=== PATIENT | female | born 1965 | race Caucasian/White ===

== ENCOUNTER → 2017-10-30 10:08 | Outpatient (CLI) | payer BC, SELFPAY ==
[2017-10-30 12:44] LABS: Absolute Lymphocyte Count 2.67 X10^3/ul (0.83-4.51); Absolute Neutrophil Count 1.6 X10^3/uL (2.0-7.7); Basophil# 0.14 X10^3/uL; Basophil% 2.7 % (0-1); Eosinophil# 0.34 X10^3/uL; Eosinophils% 6.4 % (0-5); Lymphocyte # 2.67 X10^3/ul (4.0); Lymphocyte % 50.6 % (19-41); Mean Corp Hgb Conc 31.7 g/gl (32-36); Mean Corpuscular Hgb 29.4 pg (27.0-32.0); Mean Corpuscular Volume 92.8 fL (81-99); Mean Platelet Vol. 10.9 fl (6.2-12.0); Monocyte# 0.55 X10^3/uL; Monocyte% 10.4 % (0-10); Neutrophil # 1.58 X10^3/uL (2.7-7.7); Neutrophil % 29.9 % (47-70); Platelet Count 263 K/mm3 (150-450); RBC Distribution Width CV 13.1 % (11.6-14.6); RBC Distribution Width SD 44.3 fl (35.1-43.9); Red Blood Count 4.42 M/mm3 (4.2-5.4); White Blood Count 5.3 K/mm3 (4.4-11.0)
[2017-10-30 12:45] LABS: POSITIVE COUNT NO; POSITIVE DIFFERENTIAL NO; POSITIVE MORPHOLOGY NO
[2017-10-30 13:02] LABS: ALB/GLOB Ratio 1.1 RATIO (0.9-2.4); AST(SGOT) 26 U/L (15-37); Alanine Aminotransfer ALT/SGPT 45 U/L (13-56); Albumin, Serum 3.7 g/dL (3.2-5.0); Alkaline Phosphatase 96 U/L (45-117); Anion Gap 9 (5-15); BUN 13 mg/dL (7-18); BUN/Creat Ratio 17.3 RATIO (10-20); Calcium,Total 8.8 mg/dL (8.5-10.1); Chloride 105 mmol/L (98-107); Creatinine, Serum 0.75 mg/dL (0.55-1.02); EST Glomerular Filtration Rate 86 mL/min (>60); Est Glom Filt Rate - Afr Amer 104 mL/min (>60); Globulin 3.5 g/dL (2.2-4.2); Glucose 82 mg/dL (74-106); Potassium 3.8 mmol/L (3.5-5.1); Protein, Total 7.2 g/dL (6.4-8.2); Sodium Level 140 mmol/L (136-145)
== END ==
PROVIDERS: Family Provider Family Medicine; PCP Family Medicine; Visit Provider Internal Medicine Rheumatology
DX: M06.09 Rheumatoid arthritis without rheumatoid factor, multiple sites (principal); M79.7 Fibromyalgia; M51.36 Other intervertebral disc degeneration, lumbar region; G43.109 Migraine with aura, not intractable, without status migrainosus; N20.0 Calculus of kidney; Z79.899 Other long term (current) drug therapy
CPT/HCPCS: 36415; 80053; 85025

== ENCOUNTER → 2018-01-20 11:17 | Outpatient (CLI) | payer BC, SELFPAY ==
[2018-01-20 12:16] LABS: Absolute Neutrophil Count 1.5 X10^3/uL (2.0-7.7); Basophil# 0.06 X10^3/uL; Basophil% 1.4 % (0-1); Eosinophil# 0.26 X10^3/uL; Eosinophils% 6.3 % (0-5); Hematocrit 38.9 % (37-47); Hemoglobin 12.3 g/dl (12.0-15.0); Lymphocyte % 48.1 % (19-41); Mean Corp Hgb Conc 31.6 g/gl (32-36); Mean Corpuscular Hgb 29.3 pg (27.0-32.0); Mean Corpuscular Volume 92.6 fL (81-99); Mean Platelet Vol. 10.8 fl (6.2-12.0); Monocyte# 0.34 X10^3/uL; Monocyte% 8.2 % (0-10); Platelet Count 242 K/mm3 (150-450); RBC Distribution Width CV 12.4 % (11.6-14.6); White Blood Count 4.2 K/mm3 (4.4-11.0)
[2018-01-20 12:28] LABS: POSITIVE COUNT NO; POSITIVE DIFFERENTIAL NO; POSITIVE MORPHOLOGY NO
[2018-01-20 12:34] LABS: ALB/GLOB Ratio 1.1 RATIO (0.9-2.4); AST(SGOT) 31 U/L (15-37); Alanine Aminotransfer ALT/SGPT 47 U/L (13-56); Albumin, Serum 3.7 g/dL (3.2-5.0); Alkaline Phosphatase 114 U/L (45-117); Anion Gap 4 (5-15); BUN 12 mg/dL (7-18); BUN/Creat Ratio 13.1 RATIO (10-20); Calcium,Total 8.8 mg/dL (8.5-10.1); Chloride 107 mmol/L (98-107); Creatinine, Serum 0.91 mg/dL (0.55-1.02); EST Glomerular Filtration Rate 68 mL/min (>60); Est Glom Filt Rate - Afr Amer 83 mL/min (>60); Globulin 3.5 g/dL (2.2-4.2); Glucose 73 mg/dL (74-106); Potassium 3.9 mmol/L (3.5-5.1); Protein, Total 7.2 g/dL (6.4-8.2); Sodium Level 142 mmol/L (136-145)
== END ==
PROVIDERS: Family Provider Family Medicine; PCP Family Medicine; Visit Provider Internal Medicine Rheumatology
DX: M06.09 Rheumatoid arthritis without rheumatoid factor, multiple sites (principal); Z79.899 Other long term (current) drug therapy; M79.7 Fibromyalgia; M51.36 Other intervertebral disc degeneration, lumbar region; G43.109 Migraine with aura, not intractable, without status migrainosus; N20.0 Calculus of kidney
CPT/HCPCS: 36415; 80053; 85025

== ENCOUNTER → 2018-04-01 11:33 | Outpatient (CLI) | payer BC, SELFPAY ==
[2018-04-01 14:23] LABS: Absolute Lymphocyte Count 3.35 X10^3/ul (0.83-4.51); Absolute Neutrophil Count 1.9 X10^3/uL (2.0-7.7); Basophil# 0.12 X10^3/uL; Basophil% 1.9 % (0-1); Eosinophil# 0.27 X10^3/uL; Eosinophils% 4.4 % (0-5); Hemoglobin 13.6 g/dl (12.0-15.0); Lymphocyte # 3.35 X10^3/ul (4.0); Lymphocyte % 54.2 % (19-41); Mean Corp Hgb Conc 32.4 g/gl (32-36); Mean Corpuscular Volume 92.5 fL (81-99); Mean Platelet Vol. 10.9 fl (6.2-12.0); Monocyte# 0.57 X10^3/uL; Monocyte% 9.2 % (0-10); Neutrophil # 1.87 X10^3/uL (2.7-7.7); Neutrophil % 30.3 % (47-70); Platelet Count 288 K/mm3 (150-450); RBC Distribution Width CV 12.5 % (11.6-14.6); RBC Distribution Width SD 41.4 fl (35.1-43.9); Red Blood Count 4.54 M/mm3 (4.2-5.4); White Blood Count 6.2 K/mm3 (4.4-11.0)
[2018-04-01 14:30] LABS: POSITIVE COUNT NO; POSITIVE DIFFERENTIAL NO; POSITIVE MORPHOLOGY NO
[2018-04-01 14:44] LABS: ALB/GLOB Ratio 0.9 RATIO (0.9-2.4); AST(SGOT) 54 U/L (15-37); Alanine Aminotransfer ALT/SGPT 87 U/L (13-56); Albumin, Serum 3.6 g/dL (3.2-5.0); Alkaline Phosphatase 123 U/L (45-117); Anion Gap 10 (5-15); BUN 18 mg/dL (7-18); BUN/Creat Ratio 18.7 RATIO (10-20); Calcium,Total 9.2 mg/dL (8.5-10.1); Chloride 107 mmol/L (98-107); Creatinine, Serum 0.96 mg/dL (0.55-1.02); EST Glomerular Filtration Rate 64 mL/min (>60); Est Glom Filt Rate - Afr Amer 78 mL/min (>60); Glucose 87 mg/dL (74-106); Potassium 3.8 mmol/L (3.5-5.1); Protein, Total 7.6 g/dL (6.4-8.2); Sodium Level 143 mmol/L (136-145)
== END ==
PROVIDERS: Family Provider Family Medicine; PCP Family Medicine; Visit Provider Internal Medicine Rheumatology
DX: M06.09 Rheumatoid arthritis without rheumatoid factor, multiple sites (principal); M79.7 Fibromyalgia; M51.36 Other intervertebral disc degeneration, lumbar region; G43.109 Migraine with aura, not intractable, without status migrainosus; N20.0 Calculus of kidney; Z79.899 Other long term (current) drug therapy
CPT/HCPCS: 36415; 80053; 85025

== ENCOUNTER → 2018-04-15 10:13 | Outpatient (CLI) | payer BC, SELFPAY ==
--- NOTE | 2018-04-15 10:16 | RAD_ITS ---
STUDY: X-RAY - LEFT FOOT CLINICAL: Female, 52 years old. Midfoot contusion TECHNIQUE: Great view(s) of the foot. COMPARISON: None. FINDINGS: Normal talus, calcaneus, and tarsal bones. Normal visualized subtalar, talonavicular, calcaneocuboid, tarsal and tarsometatarsal articulations. Normal metatarsi. Normal metatarsophalangeal joint of the great toe. Normal tibial and fibular sesamoid bones. Normal interphalangeal joint of the great toe. Normal phalanges of the great toe. Normal second through fifth metatarsophalangeal joints. Normal interphalangeal joints and phalanges of the lesser toes. The soft tissue structures are unremarkable. RAD/Foot min 3 Views IMPRESSION: Normal x-ray examination of the foot. Electronically Signed: Moshe Barillas MD at 10:42 EDT , Service support ,
== END ==
PROVIDERS: Family Provider Family Medicine; PCP Family Medicine; Visit Provider Internal Medicine Rheumatology
DX: M06.09 Rheumatoid arthritis without rheumatoid factor, multiple sites (principal); M79.7 Fibromyalgia; M51.36 Other intervertebral disc degeneration, lumbar region; G43.109 Migraine with aura, not intractable, without status migrainosus; N20.0 Calculus of kidney; Z79.899 Other long term (current) drug therapy
CPT/HCPCS: 73630

== ENCOUNTER → 2018-07-13 10:47 | Outpatient (CLI) | payer BC, SELFPAY ==
[2018-07-13 12:22] LABS: Absolute Neutrophil Count 2.8 X10^3/uL (2.0-7.7); Basophil% 1.7 % (0-1); Eosinophil# 0.33 X10^3/uL; Eosinophils% 5.8 % (0-5); Hematocrit 39.4 % (37-47); Hemoglobin 12.6 g/dl (12.0-15.0); Lymphocyte % 33.2 % (19-41); Mean Corpuscular Hgb 29.5 pg (27.0-32.0); Mean Corpuscular Volume 92.3 fL (81-99); Mean Platelet Vol. 10.7 fl (6.2-12.0); Monocyte% 10.5 % (0-10); Neutrophil # 2.79 X10^3/uL (2.7-7.7); Neutrophil % 48.8 % (47-70); Platelet Count 248 K/mm3 (150-450); RBC Distribution Width CV 12.6 % (11.6-14.6); Red Blood Count 4.27 M/mm3 (4.2-5.4); White Blood Count 5.7 K/mm3 (4.4-11.0)
[2018-07-13 12:28] LABS: POSITIVE COUNT NO; POSITIVE DIFFERENTIAL NO; POSITIVE MORPHOLOGY NO
[2018-07-13 12:46] LABS: AST(SGOT) 54 U/L (15-37); Alanine Aminotransfer ALT/SGPT 78 U/L (13-56); Albumin, Serum 3.6 g/dL (3.2-5.0); Alkaline Phosphatase 114 U/L (45-117); Anion Gap 7 (5-15); BUN 10 mg/dL (7-18); BUN/Creat Ratio 12.6 RATIO (10-20); Calcium,Total 8.5 mg/dL (8.5-10.1); Chloride 110 mmol/L (98-107); Creatinine, Serum 0.79 mg/dL (0.55-1.02); EST Glomerular Filtration Rate 80 mL/min (>60); Est Glom Filt Rate - Afr Amer 97 mL/min (>60); Globulin 3.5 g/dL (2.2-4.2); Glucose 86 mg/dL (74-106); Potassium 4.1 mmol/L (3.5-5.1); Protein, Total 7.1 g/dL (6.4-8.2); Sodium Level 144 mmol/L (136-145)
== END ==
PROVIDERS: Family Provider Family Medicine; PCP Family Medicine; Referring Provider Internal Medicine Rheumatology; Visit Provider Internal Medicine Rheumatology
DX: M06.09 Rheumatoid arthritis without rheumatoid factor, multiple sites (principal); M79.7 Fibromyalgia; M51.36 Other intervertebral disc degeneration, lumbar region; G43.109 Migraine with aura, not intractable, without status migrainosus; N20.0 Calculus of kidney; Z79.899 Other long term (current) drug therapy
CPT/HCPCS: 36415; 80053; 85025

== ENCOUNTER → 2018-08-26 08:42 | Outpatient (CLI) | payer BC, SELFPAY ==
--- NOTE | 2018-08-26 14:47 | NEURO ---
NCS and/or EMG Patient Report Ordering Doctor: Jeremy Zimemrman DATE OF SERVICE: 08/26/18 Chloé Almeida is a 52-year-old female presents for electrodiagnostic testing of the left lower limb. She reports sharp pain in the left foot for 4 months. Electrodiagnostic findings: Left peroneal motor nerve demonstrates normal distal latency amplitude and conduction velocity. Normal left tibial motor response. Normal medial plantar response is noted. Normal tibial and peroneal F wave H reflex normal bilaterally. Needle EMG testing shows no evidence of denervation with normal motor unit action potentials. Electrodiagnostic impression: This is an a normal study in the left lower limb. There is no electrodiagnostic evidence for peripheral neuropathy or lumbosacral radiculopathy. If there are any further questions, please do not hesitate to contact me.
== END ==
PROVIDERS: Family Provider Family Medicine; PCP Family Medicine; Referring Provider Podiatrist; Visit Provider Podiatrist
DX: G57.82 Other specified mononeuropathies of left lower limb (principal); M79.672 Pain in left foot; G57.62 Lesion of plantar nerve, left lower limb
CPT/HCPCS: 95886; 95909

== ENCOUNTER → 2018-10-05 09:30 | Outpatient (CLI) | payer BC, SELFPAY ==
--- NOTE | 2018-10-05 09:47 | MRI_ITS ---
STUDY: MRI LEFT FOREFOOT WITHOUT CONTRAST REASON FOR EXAM: Female, 53 years old. Osteoarthritis. Foot pain TECHNIQUE: Standardized fat and water weighted pulse sequences were obtained in all 3 orthogonal planes. COMPARISON: X-ray April 15, 2018. FINDINGS: Small effusion at the metatarsophalangeal joint of the hallux. Normal tibial and fibular sesamoids, with normal sesamoids-first metatarsal articulations. Normal interphalangeal joint of the hallux. Normal proximal and distal phalanges of the great toe. Normal medial and lateral heads of the flexor hallucis brevis tendons. Normal flexor and extensor hallucis longus tendons. Normal second through fifth metatarsophalangeal (MTP) joints. Normal interphalangeal joints of the second through fifth toes. Normal proximal, middle and distal phalanges of the second through fifth toes. Normal first through fourth intermetatarsal spaces. Normal flexor and extensor tendons of the second through fifth toes. Normal visualized metatarsi. Normal intrinsic muscles of the forefoot. There is intermetatarsal bursitis of the second interspace. There is diminished signal consistent with 0.4 cm neuroma at the second interdigital region, series 5 image 07/13 MRI/Lower Ext/No Jt/w/o IMPRESSION: Intermetatarsal bursitis at the second interspace with interdigital neuroma. No fracture. Electronically Signed: Domenico Dobson MD at 11:46 EST , Service support ,
--- NOTE | 2018-10-05 09:51 | MRI_ITS ---
STUDY: MRI LEFT ANKLE WITHOUT CONTRAST REASON FOR EXAM: Female, 53 years old. Left ankle peroneal tendinitis with mononeuropathy and osteoarthropathy. TECHNIQUE: Standardized fat and water weighted pulse sequences were obtained in all 3 orthogonal planes. COMPARISON: Radiographs of the left foot dated April 15, 2018. FINDINGS: Normal subcutis adipose space. Normal posterior tibialis tendon. Normal flexor digitorum longus tendon. Normal flexor hallucis longus tendon. There is a tenosynovitis of the peroneal tendons without a demonstrated tendon tear. Normal tibialis anterior tendon. Normal extensor hallucis longus tendon. Normal extensor digitorum longus tendons. Normal Achilles tendon and teno-osseous insertion. There is thickening of the central cord of the plantar fascia, without a plantar fasciitis or plantar fascial tear, consistent with plantar fascial degeneration. There is a plantar calcaneal spur, but without cancellous marrow edema. Normal intrinsic muscles of the rearfoot. Normal distal tibiofibular syndesmotic ligamentous complex. Normal lateral ligamentous complex. Normal subtalar ligaments and sinus tarsi. Normal deltoid ligamentous complexes. Normal plantar calcaneonavicular (spring) ligament. Normal tibiotalar articulation. Normal talar dome. Normal subtalar articulations. Normal talonavicular articulation. Normal calcaneocuboid articulation. Normal navicular-cuneiform articulations. There appears to be a small ganglion cyst located lateral to the cuboid. These measure approximately 7.9 mm in greatest dimension. There also may be a ganglion cyst plantar to the first tarsal metatarsal articulation. This cyst measures approximately 7.5 mm in greatest dimension. MRI/Lower Ext Joint Only (Routine) IMPRESSION: 1. Tenosynovitis of the peroneus tendons. 2. Small ganglion cyst near the cuboid and plantar to the first tarsometatarsal articulation. 3. Apparent sequela of plantar fasciitis.. Electronically Signed: Rupinder Souza MD at 2:23 EST , Service support ,
== END ==
PROVIDERS: Family Provider Family Medicine; PCP Family Medicine; Referring Provider Podiatrist; Visit Provider Podiatrist
DX: G57.82 Other specified mononeuropathies of left lower limb (principal); G57.62 Lesion of plantar nerve, left lower limb; M19.072 Primary osteoarthritis, left ankle and foot; M76.72 Peroneal tendinitis, left leg
CPT/HCPCS: 73718; 73721

== ENCOUNTER 2018-11-18 09:30 | Outpatient (RCR) | payer BC, SELFPAY ==
--- NOTE | 2018-10-22 09:26 | HP.PTEVAL_ITS ---
Patient's Visit Information CHRISTIANO MICHELLE is a 53 year old F referred to Physical Therapy by Jeremy Zimmerman DPM with a diagnosis of Left Foot. Date of Evaluation: 10/22/18 Physical Therapist: Mehreen Richmond DPT - Visit Plan Frequency: 2x /Week Duration: 4 Weeks Plan: Ankle strength/stabilization and stretching with modality of US - Subjective Findings: Left foot pain started towards the end of summer- running up/down the stairs at work- but didn't do anything different. Thought maybe a stress fracture but she avoided the doctor but finally it wasn't better so she went to the MD- who a nerve conduction study, MRI which showed ganglion cysts and peroneal tendonitits. Pain is located lateral malleolus down the side of the foot and under the arch and can radiate to the toes- no radiating pain. Toes goes numb when she is walking but it happens on both sides. Plans to have EMG on her right side and neck issues as well. Describes as tearing, burning and throbbing pains. Worst: 8/10 Normally a 3-4/10 Best: 0/10 Agg: walking on it, stairs, standing on it for long periods of time. Eases: rest, sitting. MD wants her to wear the boot all the time and not to be barefoot. Does not wear orthotics but she is getting casted for some. Sleep: disturbed- hard to get comfortable. 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 PMHx: RA, Fibro, allergies Meds: singulair, plaquinil, arencia, tramadol, benadryl. Wears the boot to work - Objective Posture: FH, RS- can correct with verbal cues but does not maintain. Gait: deviation with left CAM walker. SLS: 5 sec then LOB and requires UE A. HR/TR:able with UE A and reports pain. Palpation: tender along lateral malleolus and 5th met- increase discomfort along plantar fascia. Strength: Ankle: 4+/5. ROM: DF: 10 degrees, PF: 60 degrees, Inv: 40 degrees, ER: 30 degrees no pain at end ranges. Special Test: Squeeze Test: severe increase in pain - Goals Goal 1:: Patient will be I with HEP and progression Goal Time Frame: 4-6 Weeks Goal 2:: Patient will SLS for 15 sec without LOB Goal Time Frame: 4-6 Weeks Goal 3:: Patient will report 0/10 pain for 1 week Goal Time Frame: 4-6 Weeks Goal 4:: Patient will demo 5/5 strength in ankle where deficit Goal Time Frame: 4-6 Weeks - Rehabilitation Potential Physical Therapy Diagnosis: Patient presents with hypomobility- she has decreased strength, flexibility and muscular endurnace leading to increased pain with ADL's. Rehabilitation Potential: Fair - Anticipated Interventions Therapeutic Exercise to Include: Strength training, Endurance training, Balance training, Body mechanics, Postural training, Flexibilty training, Gait and locomotor training For the Purpose of:: To improve muscle performance and motor function TENS: Yes Cryotherapy (ice pack, ice massage): Yes Thermo therapy (hot pack): Yes Ultrasound (thermal/non thermal): Yes For the Purpose of:: To decrease pain Thank you for the opportunity to evaluate your patient. For Medicare and Medicare HMO plans, please review the plan of care and approve it. It will need to be FAXED BACK to us at [phone] for Medicare purposes. For Medicare only, by signing this I certify the plan of care. Please let me know if there are questions or concerns regarding this plan of care. Physician Jl gnature: Date:
--- NOTE | 2018-11-18 09:49 | HP.PTREVAL ---
Jeremy Zimmerman DPM, It has been my pleasure to treat CHRISTIANO MICHELLE over the last 9 visits for Left Foot. Please see the progress note below for an update on the physical therapy plan of care! Subjective: The foot is not any better- mensical tear in the right and is having surgery in November. Got orthotics and is waiting to see how that goes then they will decide whats next. She has only had orthotics for a week. Goes back to the foot doctor 12/07. Does wake her up at night. Objective/Function: Posture: FH, RS- can correct with verbal cues but does not maintain. Gait: no CAM walker- decreased heel strike/toe off pattern SLS: 10 sec then LOB and requires UE A. HR/TR:able with UE A and reports pain. Palpation: tender along lateral malleolus and 5th met- increase discomfort along plantar fascia. Strength: Ankle: 5/5. ROM: DF: 10 degrees, PF: 60 degrees, Inv: 40 degrees, ER: 30 degrees no pain at end ranges. Special Test: Squeeze Test: severe increase in pain Plan Plan: Hold- try orthotics for a few weeks Goals Goal 1:: Patient will be I with HEP and progression Goal Time Frame: 4-6 Weeks Goal Progress: Goal Met Goal 2:: Patient will SLS for 15 sec without LOB Goal Time Frame: 4-6 Weeks Goal Progress: Progressing Goal 3:: Patient will report 0/10 pain for 1 week Goal Time Frame: 4-6 Weeks Goal Progress: Not Progressing Goal 4:: Patient will demo 5/5 strength in ankle where deficit Goal Time Frame: 4-6 Weeks Goal Progress: Goal Met Anticipated Interventions Therapeutic Exercise to Include: Strength training, Endurance training, Balance training, Body mechanics, Postural training, Flexibilty training, Gait and locomotor training For the Purpose of:: To improve muscle performance and motor function TENS: Yes Cryotherapy (ice pack, ice massage): Yes Thermo therapy (hot pack): Yes Ultrasound (thermal/non thermal): Yes For the Purpose of:: To decrease pain Please do not hesitate to contact me at [phone] by phone or if you have questions or concerns regarding this new plan of care! Sincerely, Mehreen Richmond DPT
--- NOTE | 2019-01-21 11:55 | HP.PT.NRP ---
HP - Discharge Summary (1) - Patient Information CHRISTIANO MICHELLE was seen in my office for initial evaluation on 10/22/18. The following Plan of Care was established for this patient: Initial Frequency: 2x /Week Initial Duration: 4 Weeks - Anticipated Interventions Therapeutic Exercise to Include: Strength training, Endurance training, Balance training, Body mechanics, Postural training, Flexibilty training, Gait and locomotor training For the Purpose of:: To improve muscle performance and motor function TENS: Yes Cryotherapy (ice pack, ice massage): Yes Thermo therapy (hot pack): Yes Ultrasound (thermal/non thermal): Yes For the Purpose of:: To decrease pain This patient was last seen in our office . Pertinent comments regarding their Physical therapy will appear below: Patient has not attended physical therapy is over 30 days- appropriate to be d/c from PT and return to MD as needed for further evaluation. At this point I will be discontinuing this patient from physical therapy. I would be happy to see this patient again in the future if found appropriate by the physician. Thank you! Mehreen Richmond DPT
== END 2018-11-18 19:00 | disposition home or self-care (01) ==
LOC: PT 09:30
PROVIDERS: Family Provider Family Medicine; PCP Family Medicine; Referring Provider Podiatrist; Visit Provider Podiatrist
DX: M19.072 Primary osteoarthritis, left ankle and foot (principal); G57.62 Lesion of plantar nerve, left lower limb; G57.82 Other specified mononeuropathies of left lower limb; M79.622 Pain in left upper arm; M67.472 Ganglion, left ankle and foot; M76.72 Peroneal tendinitis, left leg
CPT/HCPCS: 97035; 97110; 97161; 97164